=== PATIENT | male | born 1930 | race Caucasian/White ===

== ENCOUNTER 2017-11-15 13:00 | Emergency (ER) | payer OTHER ==
[~2017-11-15] VITALS: Ht 172.7 cm; Wt 109.3 kg
--- NOTE | 2017-11-15 13:00 | NUR ---
PLACED ON MONITOR. GOWNED PT. AWAITING MD ORDER . PT HAS RFA #20 IV ACCESS [employer]
--- NOTE | 2017-11-15 13:00 | NUR ---
[id number] FROM HOME FOR WORSENING SOB X 3 DAYS, BREATHING TX GIVEN EN ROUTE BS-[id number]. "ON/OFF COUGH X MONTHS" PER PT
[2017-11-15 13:24] LABS: BASOPHILS % (AUTO) 0.4 % (0.0-2.0); EOSINOPHILS % (AUTO) 0.5 % (0.0-6.0); HEMATOCRIT 42 % (39-51); HEMOGLOBIN 13.9 g/dL (13.5-17.5); LYMPHOCYTES # (AUTO) 1.8 /CMM (0.8-4.8); LYMPHOCYTES % (AUTO) 19.2 % (20.0-44.0); MEAN CORPUSCULAR HGB CONC 33 g/dl (31.0-36.0); MEAN CORPUSCULAR VOLUME 89 fL (80-96); MONOCYTES # (AUTO) 0.5 /CMM (0.1-1.30); MONOCYTES % (AUTO) 5.1 % (2.0-12.0); NEUTROPHILS % (AUTO) 74.8 % (43.0-81.0); RDW COEFFICIENT OF VARIATION 14.6 (11.5-15.0); RED BLOOD CELL COUNT(AUTO) 4.67 MIL/uL (4.5-6.0); WHITE BLOOD COUNT (AUTO) 9.4 K/uL (4.3-11.0)
[2017-11-15] MEDS ORDERED: ALBUTEROL FS 2.5 MG/3 ML VIAL.NEB NEB ONE ×2 (13:30)
[2017-11-15] MEDS ORDERED: IPRATROPIUM NEB FS 0.5 MG/2.5 ML AMPUL.NEB NEB ONE ×2 (13:30)
[2017-11-15] MEDS ORDERED: methylPREDNISolone SOD SUCC 125 MG/2ML VIAL IV ONE (13:30)
[2017-11-15 13:38] LABS: CALCIUM, SERUM 8.6 mg/dL (8.5-10.1); CARBON DIOXIDE 31 mmol/L (21-32); CHLORIDE 105 mmol/L (98-107); CREATININE 1.1 mg/dL (0.6-1.3); GLUCOSE 110 mg/dL (74-106); POTASSIUM 3.5 mmol/L (3.5-5.1); SODIUM SERUM 144 mmol/L (136-145); UREA NITROGEN, BLOOD 19 mg/dL (7-18)
[2017-11-15] MEDS ORDERED: ALBUTEROL FS 2.5 MG/3 ML VIAL.NEB ONE (13:51)
[2017-11-15] MEDS ORDERED: IPRATROPIUM NEB FS 0.5 MG/2.5 ML AMPUL.NEB ONE (13:51)
[2017-11-15] MEDS ORDERED: methylPREDNISolone SOD SUCC 125 MG/2ML VIAL ONE (13:52)
--- NOTE | 2017-11-15 13:57 | NUR ---
CALLED [facility],SPOKE WITH MARYANA. EXPECTING A CALL BACK FROM [facility]
[2017-11-15 14:03] LABS: PLATELET COUNT (AUTO) 196 /CMM (150-450)
--- NOTE | 2017-11-15 14:06 | NUR ---
[facility] CALLED ERROR CURRENT UPDATED 196
--- NOTE | 2017-11-15 14:07 | NUR ---
DR CLEMENTS FROM [facility] CALLED, ON THE PHONE WITH DR PATE.
[2017-11-15 14:11] LABS: LYMPHOCYTES % (MANUAL) 20 % (16-48); MONOCYTES % (MANUAL) 10 % (0-11.0); NEUTROPHILS % (MANUAL) 70 (42-76)
--- NOTE | 2017-11-15 14:52 | NUR ---
[facility] CALLED WITH TRANSPORT INFO PATIENT WILL BE TRANSFERED TO [facility] ER DR BAJWA [facility] ETA [id number]
--- NOTE | 2017-11-15 15:29 | NUR ---
GAVE REPORT TO TYRONE MARY NARVAEZ
--- NOTE | 2017-11-15 15:37 | NUR ---
CALLED XRAY FOLLOWING UP TO READING XRAY RESULTS .
[2017-11-15 15:40] VITALS: BP 175/76
== END 2017-11-15 16:14 | disposition short-term general hospital (02) ==
LOC: ER 13:01
DX: J44.1 Chronic obstructive pulmonary disease with (acute) exacerbation (principal); I10 Essential (primary) hypertension
CPT/HCPCS: 36415; 71046; 80048; 83880; 85025; 94640 ×2; 96374; 99285; A4606; J2930; Z7610